=== PATIENT | female | born 1960 | race Caucasian/White ===

== ENCOUNTER 2016-04-25 23:48 | Inpatient (IN) | payer OTHER ==
[~2016-04-25] VITALS: Ht 165.1 cm; Wt 66.8 kg
[2016-04-26 01:48] LABS: HEMOGLOBIN 14.3 g/dL (11.7-16.4)
[2016-04-26 02:01] LABS: ASPARTATE AMINO TRANSFERASE 22 U/L (15-37); BLOOD UREA NITROGEN 21 mg/dL (7-18)
[2016-04-26 02:07] LABS: IS PT STATUS REG ER OR PRE ER? YES
[2016-04-26] MEDS ORDERED: ASPIRIN 325 MG TABLET PO ONE (02:30)
[2016-04-26] MEDS ORDERED: ALPR-475 PO (02:35)
[2016-04-26] MEDS ORDERED: BECL8.7A5 INH (02:35)
[2016-04-26] MEDS ORDERED: ACETAMINOPHEN 325 MG TABLET PO PRN (03:00)
[2016-04-26] MEDS ORDERED: ENOXAPARIN 40 MG/0.4 ML SQ SCH (03:00)
[2016-04-26] MEDS ORDERED: BISACODYL 10 MG SUPP PR PRN (03:00)
[2016-04-26] MEDS ORDERED: DOCUSATE 100 MG CAPSULE PO PRN (03:00)
[2016-04-26] MEDS ORDERED: POLYETHYLENE GLYCOL 17 GM PACKET PO PRN (03:00)
[2016-04-26] MEDS ORDERED: ONDANSETRON 2MG/ML, 2ML IVP PRN (03:00)
[2016-04-26] MEDS ORDERED: ZOLPIDEM 5MG TABLET PO PRN (03:00)
[2016-04-26] MEDS ORDERED: LABETALOL 5MG/ML, 20ML IV PRN (03:00)
[2016-04-26] MEDS ORDERED: ENOXAPARIN 40 MG/0.4 ML ONE (03:41)
[2016-04-26] MEDS ORDERED: ASPIRIN 325 MG TABLET ONE (03:41)
[2016-04-26 04:15] VITALS: BP 125/80
[2016-04-26] MEDS ORDERED: CETI-237 PO (06:24)
[2016-04-26 07:00] VITALS: BP 117/79
[2016-04-26] MEDS ORDERED: SODIUM CHLORIDE FLUSH 10ML SYR IVF SCH (09:00)
[2016-04-26] MEDS ORDERED: FLUTICASONE FUROATE 200MCG/INH INH SCH (09:00)
[2016-04-26 10:17] LABS: PATH.CAST-FLAG NOT PRESENT; SPERM-FLAG NOT PRESENT; SRC-FLAG NOT PRESENT; XTAL-FLAG NOT PRESENT; YLC-FLAG NOT PRESENT
[2016-04-26 13:23] VITALS: BP 110/74
[2016-04-26] MEDS ORDERED: ASPI-515 PO (17:12)
[2016-04-26] MEDS ORDERED: ATOR20TA PO (17:12)
== END 2016-04-26 18:26 | disposition home or self-care (01) | DRG 69 ==
LOC: ED 23:59 → SUATTDRO 04-26 02:42 → EDIP 04-26 02:49 → 5SO 04-26 04:47
PROVIDERS: ATTEND Family Medicine
PROC: 0T9B70Z Drainage of Bladder with Drainage Device, Via Natural or Artificial Opening (ICD-10-PCS; principal; 2016-04-26)
DX: G45.9 Transient cerebral ischemic attack, unspecified (principal); F41.9 Anxiety disorder, unspecified; J45.909 Unspecified asthma, uncomplicated; E78.5 Hyperlipidemia, unspecified; E78.00 Pure hypercholesterolemia, unspecified; Z86.73 Personal history of transient ischemic attack (TIA), and cerebral infarction without residual deficits; Z88.0 Allergy status to penicillin; Z88.8 Allergy status to other drugs, medicaments and biological substances; Z82.3 Family history of stroke; Z86.32 Personal history of gestational diabetes
CPT/HCPCS: 36415; 70551; 80053; 80061; 81001; 84484; 85025; 93005; 93306; 93880; 96372; J1650

== ENCOUNTER 2016-05-14 11:58 | Emergency (ER) | payer OTHER ==
[~2016-05-14] VITALS: Ht 165.1 cm; Wt 68.1 kg
[~2016-05-14 11:58] MED LIST: ALPR-475 PO; ASPI-515 PO; ATOR20TA PO; BECL8.7A5 INH; CETI-237 PO
[2016-05-14 12:40] LABS: HEMOGLOBIN 15.4 g/dL (11.7-16.4)
[2016-05-14] MEDS ORDERED: LORazepam 2 MG/ML, 1ML ONE (12:47)
[2016-05-14 12:52] LABS: ASPARTATE AMINO TRANSFERASE 23 U/L (15-37); BLOOD UREA NITROGEN 12 mg/dL (7-18)
[2016-05-14] MEDS ORDERED: LORazepam 2 MG/ML, 1ML IVPush ONE (13:00)
[2016-05-14 16:00] VITALS: BP 120/78
== END 2016-05-14 16:52 | disposition home or self-care (01) ==
LOC: ED 13:05
DX: G45.9 Transient cerebral ischemic attack, unspecified (principal); J45.909 Unspecified asthma, uncomplicated; Z88.0 Allergy status to penicillin; Z88.1 Allergy status to other antibiotic agents
CPT/HCPCS: 36415; 70450; 70551; 80047; 80053; 85025; 85520; 85610; 85730; 93005; 99285